=== PATIENT | male | born 1955 | race Caucasian/White ===

== ENCOUNTER 2016-04-03 05:12 | Inpatient (IN) | payer OTHER ==
[2016-03-23 14:36] VITALS: BMI 35.0
--- NOTE | 2016-03-23 15:15 | PAT Medication Instructions ---
Service Date Mar 23, 2016. Current Home Medication List Amlodipine (Norvasc), 10 MG PO QAM Aspirin (Aspirin Ec), 81 MG PO HS Atenolol (Tenormin), 100 MG PO QAM Atorvastatin (Lipitor), 20 MG PO HS Choline Fenofibrate (Trilipix), 1 CAP PO HS Citalopram Hydrobromide (Citalopram Hydrobromide), 1 TAB PO HS Hydrochlorothiazide (Hctz), 25 MG PO QAM Lisinopril (Zestril), 40 MG PO QAM Lorazepam (Ativan), 0.5 MG PO HS PRN for RN Metformin Hcl (Glucophage), 1,000 MG PO BID Multivitamin (Multivitamin), 1 TAB PO QAM Omeprazole (Prilosec), 20 MG PO PRN Spironolactone (Aldactone), 25 MG PO QAM Tramadol (Ultram), 50 MG PO Q6H PRN for RN [Lovaza], 2 GM PO BID Medication Instructions For Your Scheduled Surgery - Hold the following medications 1 week prior to surgery: [Lovaza], 2 GM PO BID - Hold the following medications 48 hours prior to surgery: Metformin Hcl (Glucophage), 1,000 MG PO BID - Hold the following medications 24 hours prior to surgery: Choline Fenofibrate (Trilipix), 1 CAP PO HS - Hold the following medications the morning of surgery: Hydrochlorothiazide (Hctz), 25 MG PO QAM Lisinopril (Zestril), 40 MG PO QAM Spironolactone (Aldactone), 25 MG PO QAM Multivitamin (Multivitamin), 1 TAB PO QAM - Take the following medications the morning of surgery with a sip of water OTHERWISE NOTHING TO EAT OR DRINK AFTER MIDNIGHT: Atenolol (Tenormin), 100 MG PO QAM Amlodipine (Norvasc), 10 MG PO QAM Tramadol (Ultram), 50 MG PO Q6H PRN (may take up to 4 hours prior to surgery if needed) Omeprazole (Prilosec), 20 MG PO PRN (as needed) - Take the following medications as scheduled the night before surgery: Aspirin (Aspirin Ec), 81 MG PO HS Atorvastatin (Lipitor), 20 MG PO HS Citalopram Hydrobromide (Citalopram Hydrobromide), 1 TAB PO HS Tramadol (Ultram), 50 MG PO Q6H PRN Lorazepam (Ativan), 0.5 MG PO HS PRN If you have any questions please call us at [phone] or [phone] or [phone]
[2016-03-23 15:33] LABS: BASO % 0.3 %; BASO ABS # 0.02 K/uL (0-0.2); COMPLETE YES; EOS % 2.5 %; HEMATOCRIT 41.8 % (42-52); IG% 0.3 %; LYMPH % 34.5 %; LYMPH ABS # 2.36 K/uL (1.2-3.4); MEAN CELL VOLUME 79.9 fL (80-100); MEAN CORPUSCULAR HEMOGLOBIN 28.3 pg (25-34); MEAN CORPUSCULAR HGB CONC 35.4 g/dl (32-36); MEAN PLATELET VOLUME 9.3 fL (7.4-10.4); MONO % 7.9 %; NEUT % 54.5 %; PLATELET COUNT 214 K/uL (130-400); RED BLOOD COUNT 5.23 M/uL (4.7-6.1); WHITE BLOOD COUNT 6.84 K/uL (4.8-10.8)
[2016-03-23 15:34] LABS: URINE APPEARANCE CLEAR (CLEAR); URINE BILIRUBIN NEG (NEG); URINE COLOR YELLOW; URINE NITRITE NEG (NEG); URINE PH 7.5 (4.5-7.5); URINE SPECIFIC GRAVITY 1.002 (1.000-1.030); UROBILINOGEN NEG (NEG)
[2016-03-23 15:35] LABS: MANUAL MICROSCOPIC REQUIRED? NO; REVIEW REQ? NO
[~2016-04-03] VITALS: Ht 167.6 cm; Wt 100.0 kg
[2016-04-03] VITALS (18 sets, daily range): BP systolic 145–180; BP diastolic 88–105; PULSE 7–95; TEMP 36.8–37; O2SAT 92–98; Ht 167.6 cm; Wt 100.0 kg
[~2016-04-03 05:12] MED LIST: AMLO-114 PO; ASPI81TA28 PO; ATEN-175 PO; ATOR-22 PO; CHOL135C6 PO; CITA20TA4 PO; GLC/500 PO; HYDR25TA4 PO; LISI40TA PO; LORA-741 PO; LOVAZA PO; MULT-506 PO; PRLSR20 PO; SPIR25TA PO; TRAM-10 PO
[2016-04-03] MEDS ORDERED: LACTATED RINGER'S 1000ML 1,000 ML IV SCH (06:00)
[2016-04-03] MEDS ORDERED: CEFAZOLIN 2000 MG/60 ML D5W IV SCH (06:00)
[2016-04-03] MEDS ORDERED: PROPOFOL IV EMULSION 10 MG/ML 20 ML VIAL IV ONE ×2 (06:14→08:15)
[2016-04-03] MEDS ORDERED: PHENYLEPHRINE HCL INJ 10 MG/ML VIAL ONE (06:14)
[2016-04-03] MEDS ORDERED: ONDANSETRON INJ 2 MG/ML 2 ML VIAL ONE ×2 (06:14→08:15)
[2016-04-03] MEDS ORDERED: LIDOCAINE HCL 2% 2 ML VIAL (20MG/ML) ONE (06:14)
[2016-04-03] MEDS ORDERED: EpHEDrine SULFATE INJ 50 MG/ML AMP ONE (06:14)
[2016-04-03] MEDS ORDERED: GLYCOPYRROLATE INJ 0.2 MG/ML VIAL ONE (06:14)
[2016-04-03] MEDS ORDERED: MIDAZOLAM HCL 1 MG/ML 2ML VIAL ONE (06:14)
[2016-04-03] MEDS ORDERED: NEOSTIGMINE METHYLSULFATE 1 MG/ML 10ML VIAL ONE (06:14)
[2016-04-03] MEDS ORDERED: SUCCINYLCHOLINE CHLORIDE 20 MG/ML 10 ML VIAL IV ONE (06:14)
[2016-04-03] MEDS ORDERED: DEXAMETHASONE SOD INJ 4 MG/ML VIAL ONE ×3 (06:14→08:16)
[2016-04-03] MEDS ORDERED: ROCURONIUM BROMIDE 10 MG/ML 5 ML VIAL ONE ×2 (06:14→08:15)
[2016-04-03] MEDS ORDERED: FENTANYL CITRATE INJ 50 MCG/1 ML 2 ML VIAL ONE ×4 (06:15→09:38)
[2016-04-03] MEDS ORDERED: SODIUM CHL BACTERIOSTATIC 0.9% INJ 30 ML VIAL ONE (06:52)
[2016-04-03] MEDS ORDERED: BACITRACIN 50000 UNIT VIAL ONE (06:53)
--- NOTE | 2016-04-03 07:36 | History & Physical Bridge Note ---
H&P Re-Evaluation Bridge Note: I have examined the patient, reviewed the History & Physical and in the interval since the performance of the History & Physical I have noted the following changes of clinical significance: No changes noted
--- NOTE | 2016-04-03 07:39 | History and Physical ---
History & Physical Date & Time of Service: Apr 03, 2016 at 07:34 Chief Complaint: Cervical Spinal Stenosis Primary Care Physician: Saul Abreu D.O. History of Present Illness Source: patient Patiebt presents for cervical radiculopathy. He has failed conservative measures and presents for surgical treatment Social History Smoking Status: Light Tobacco Smoker Allergies Coded Allergies: No Known Allergies (Unverified , 04/03/16) Home Medications Scheduled Amlodipine (Norvasc), 10 MG PO QAM Aspirin (Aspirin Ec), 81 MG PO HS Atenolol (Tenormin), 100 MG PO QAM Atorvastatin (Lipitor), 20 MG PO HS Choline Fenofibrate (Trilipix), 1 CAP PO HS Citalopram Hydrobromide (Citalopram Hydrobromide), 1 TAB PO HS Hydrochlorothiazide (Hctz), 25 MG PO QAM Lisinopril (Zestril), 40 MG PO QAM Metformin Hcl (Glucophage), 1,000 MG PO BID Multivitamin (Multivitamin), 1 TAB PO QAM Omeprazole (Prilosec), 20 MG PO PRN Spironolactone (Aldactone), 25 MG PO QAM [Lovaza], 2 GM PO BID Scheduled PRN Lorazepam (Ativan), 0.5 MG PO HS PRN for RN 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 (Ultram), 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 Constitutional: No chills, No fatigue, No fever, No problem reported, No sweats , No weakness, No weight loss Eyes: No diplopia, No discharge, No eye pain, No problem reported, No redness, No worsening of vision ENT: No dental problems, No hearing loss, No nasal symptoms, No problem reported, No sore throat, No tinnitus, No trouble swallowing, No unusual epistaxis Respiratory: No cough, No dyspnea at rest, No dyspnea on exertion, No hemoptysis, No problem reported, No shortness of breath, No sputum, No wheezing Cardiovascular: No PND, No chest pain, No claudication, No edema, No orthopnea , No palpitations, No problem reported Abdomen: No GI bleeding, No constipation, No diarrhea, No nausea, No pain, No problem reported, No vomiting Musculoskeletal: No calf pain, No joint pain, No muscle pain, No problem reported, No swelling Genitourinary - Male: No dysuria, No hematuria, No impotence, No lesions, No penile discharge, No problem reported, No urinary frequency, No urinary hesitancy, No urinary incontinence, No urinary retention, No urinary urgency Neurologic: No balance problems, No memory loss, No numbness/tingling, No paralysis, No problem reported, No vertigo, No weakness Psychiatric: No anhedonism, No anxiety, No depression symptoms, No insomnia, No problem reported, No substance abuse Endocrine: No excessive thirst, No excessive urination, No fatigue, No problem reported Hematologic / Lymphatic: No abnormal bleeding/bruising, No clotting problems, No night sweats, No problem reported, No swollen lymph nodes Physical Exam Vital Signs Date Time Temp Pulse Resp B/P Pulse Ox O2 Delivery O2 Flow Rate FiO2 04/03/16 05:39 36.9 58 18 180/98 96 Room Air General Appearance: no apparent distress Head: normocephalic Eyes: normal inspection ENT: normal ENT inspection Neck: supple Respiratory/Chest: chest non-tender Cardiovascular: regular rate, rhythm Abdomen/GI: normal bowel sounds Back: normal inspection Extremities/Musculoskelatal: normal inspection Neurologic/Psych: showcase maker II-XII nml as tested Skin: normal color Diagnostics Laboratory Results Results Past 24 Hours Test 04/03/16 05:30 Range/Units Bedside Glucose 112 70-99 mg/dl Diagnostic Radiology MRI C5-6 disc herniation with nerve root compression. Impression Assessment and Plan C5-6 disc herniation with compression of nerve roots. Will proceed with C5 corpectomy and fusion. Risks and benefits discussed. Advanced Directives Existing Advance Directive: Yes Existing Living Will: Yes Existing Power of Dish Up Person: Yes
[2016-04-03] MEDS ORDERED: ONDANSETRON INJ 2 MG/ML 2 ML VIAL IV PRN ×2 (08:15→09:45)
[2016-04-03] MEDS ORDERED: LABETALOL HCL IV 5 MG/ML 20ML IV PRN (08:15)
[2016-04-03] MEDS ORDERED: ATROPINE SULFATE 0.1 MG/ML 5ML SYR IV PRN (08:15)
[2016-04-03] MEDS ORDERED: FLOSEAL HEMOSTATIC MATRIX 5ML TOP ONE (09:36)
--- NOTE | 2016-04-03 09:43 | [facility] Post Operative Brief Note ---
Immediate Operative Summary Operative Date Apr 03, 2016. Pre-Operative Diagnosis C5-6 disc herniation with compression of nerve roots Post-Operative Diagnosis C5-6 disc herniation with compression of nerve roots Procedure(s) Performed C5 Corpectomy with Anterior Plate and Screw Fixation Surgeon Dr. Raffaele Figueroa Lace Stripper Surgeon(s) YARELY Mendoza Estimated Blood Loss 20ML Findings stenosis Specimens none per surgeon
[2016-04-03] MEDS ORDERED: LORAZEPAM INJ 0.5 MG in SYRINGE 0.75 ML IV PRN (09:45)
[2016-04-03] MEDS ORDERED: DiphenhydrAMINE HCL 50 MG/ML VIAL IV PRN (09:45)
[2016-04-03] MEDS ORDERED: MAGNESIUM HYDROXIDE SUSP 30 ML UDC PO PRN (09:45)
[2016-04-03] MEDS ORDERED: DO NOT ADMINISTER PNEUMOCOCCAL VACCINE PRN ×2 (09:45)
[2016-04-03] MEDS ORDERED: RACEPINEPHRINE 2.25% NEBU SOLN 0.5 ML VIAL INH PRN (09:45)
[2016-04-03] MEDS ORDERED: DEXAMETHASONE INJ 8 MG in SYRINGE 0 ML IV PRN (09:45)
[2016-04-03] MEDS ORDERED: TRAMADOL HCL 50 MG TAB PO PRN (09:45)
[2016-04-03] MEDS ORDERED: ACETAMINOPHEN IV 100 ML IV PRN (09:45)
[2016-04-03] MEDS ORDERED: LORAZEPAM 0.5 MG TAB PO PRN (09:45)
[2016-04-03] MEDS ORDERED: DO NOT ADMINISTER FLU VACCINE PRN ×3 (09:45)
[2016-04-03] MEDS ORDERED: NALOXONE HCL 0.4 MG/1 ML VIAL/CARP IV PRN (09:45)
--- NOTE | 2016-04-03 10:06 | OPERATIVE REPORT ---
DATE OF OPERATION: 04/03/2016 PREOPERATIVE DIAGNOSES: Cervical spondylosis, myeloradiculopathy. POSTOPERATIVE DIAGNOSES: Same. PROCEDURE PERFORMED: 1. Anterior cervical corpectomy C5. 2. Anterior cervical arthrodesis C4-C6. 3. Placement of PEEK cage 23 mm in height at C4-C6. 4. Application of Lomax plate and screws C4-C6. 5. Placement of locally harvested morselized autograft combined with DBM in the interbody cage. SURGEON: Dr. Raffaele Figueroa. NURSE PRACTITIONER PHYSICIANS ASSISTANT: Due to the complex nature of the procedure, the entire surgery was performed with the virtual assistant for advertisers of SHRUTHI Cortes. The central supply assistant, under direct supervision, was involved in the actual performance of all aspects of the surgical procedure including hemostasis, tissue retraction and incision, instrument management, patient positioning, and wound closure. ANESTHESIA: General. DISPOSITION: The patient awakened and taken to PACU in stable condition. HISTORY OF PATIENT'S PROBLEMS: This is a 60-year-old male who presents with above-mentioned diagnosis. After failing an extensive course of nonoperative care, elected to undergo the above-mentioned procedure. Risks, benefits, pros, cons, and alternatives were outlined in detail preoperatively. DESCRIPTION OF PROCEDURE: The patient was met with preoperatively, case discussed and all questions were addressed. At that point the patient was taken back to the operative suite and after undergoing successful general intubation by the department of anesthesia was placed in position on Calin table, head in [place] barrelhead inspector. All bony prominences were well padded and the eyes were inspected to ensure there was no external pressure placed upon them. At this point, the anterior cervical spine was prepped and draped in normal sterile fashion. With the assistance of fluoroscopy, we identified the C5 vertebral body and a transverse incision was placed along the right anterior aspect of the cervical spine overlying this region. Sharp dissection with the assistance of bipolar electrocautery was performed down to and exposing the anterior cervical spine from C4-C6. A self-retaining retractor was placed. I then performed a complete diskectomy of C4-C5 out to the uncovertebral joints bilaterally followed by C5-C6. [place]-distracting pins were then placed in C4 and C6 to distract across the C5 vertebral body. A complete corpectomy was then performed including removal of all posterior fibers, longitudinal ligament and bilateral foraminotomies. Endplates were then burred to subcortical bleeding bone and a 23 mm PEEK cage filled with locally harvested morcellized autograft and Teresa bone grafting tapped into position. Distracting apparatus was removed. All anterior osteophytes burred to a smooth cortical surface and a Lomax plate and screws applied with the assistance of fluoroscopy. The incision was then copiously irrigated, explored to ensure there was no damage to surrounding structures or remaining bleeding. A 10 round JUANA drain inserted and was then closed with 2-0 Vicryl in the fascia, 4-0 Monocryl for final skin closure. Steri-Strips and sterile dressing was placed. The patient was awakened and taken to PACU in stable condition. I attest to the content of the Intraoperative Record and any orders documented therein. Any exceptio ns are noted below.
--- NOTE | 2016-04-03 10:09 | DIAGNOSTIC IMAGING REPORT ---
INTRAOPERATIVE RADIOGRAPHS CLINICAL HISTORY: Anterior fusion from C4 to C6. Fluoroscopy time: 11 seconds. FINDINGS: 2 spot fluoroscopic views of the cervical spine are presented. An endotracheal tube is in place. There is evidence of corpectomy of C5 with anterior fusion from C4 to C6. The orthopedic hardware appears intact. IMPRESSION: Intraoperative images from C4 to C6 anterior spinal fusion as above. Electronically signed by: Jesus Garcia M.D. 04/03/2016 10:08 AM Dictated Date/Time: 04/03/2016 10:07 AM
[2016-04-03] MEDS: HYDROmorphone INJ 1 MG/ML SYR ONE ×2 (10:56→11:07)
[2016-04-03] MEDS: HYDROmorphone INJ 2 MG/ML SYR/VIAL IV PRN ×4 (11:00→11:15)
[2016-04-03] MEDS ORDERED: PHARMACY GLYCEMIC MGMT CONSULT PRN (11:13)
--- NOTE | 2016-04-03 11:18 | Anesthesiology Progress Note ---
Anesthesia Post Op Note Date & Time Apr 03, 2016 at 11:18 Vital Signs Vital Signs Past 12 Hours Date Time Temp Pulse Resp B/P Pulse Ox O2 Delivery O2 Flow Rate FiO2 04/03/16 11:10 70 16 145/89 97 Nasal Cannula 4 04/03/16 11:00 70 16 156/92 97 Nasal Cannula 4 04/03/16 10:50 70 16 157/91 96 Nasal Cannula 4 04/03/16 10:40 65 16 154/87 97 Nasal Cannula 4 04/03/16 10:30 61 16 147/80 97 Nasal Cannula 4 04/03/16 10:20 65 16 147/81 99 Mask 10 04/03/16 10:10 36.6 68 16 139/72 95 Mask 10 04/03/16 05:39 36.9 58 18 180/98 96 Room Air Notes Mental Status: alert / awake / arousable, participated in evaluation Pt Amnestic to Procedure: Yes Nausea / Vomiting: adequately controlled Pain: adequately controlled Airway Patency, RR, SpO2: stable & adequate BP & HR: stable & adequate Hydration State: stable & adequate Anesthetic Complications: no major complications apparent
[2016-04-03] MEDS ORDERED: GLUCAGON FOR INJ 1 MG VIAL SQ PRN (12:00)
[2016-04-03] MEDS ORDERED: DEXTROSE 50% 50 ML SYR IV PRN (12:00)
[2016-04-03] MEDS ORDERED: GLUCOSE 40% GEL 15 GM TUBE PO PRN (12:00)
[2016-04-03] MEDS ORDERED: GLUCOSE 10 TABS/TUBE PO PRN (12:00)
[2016-04-03] MEDS ORDERED: OXYCODONE HCL IR 5 MG TAB (IMMEDIATE RELEASE) ONE (12:05)
--- NOTE | 2016-04-03 12:11 | Pharmacy Progress Note ---
Glycemic Control Intl Consult Date of Service Apr 03, 2016. Scope Glycemic Pharmacist consulted by Dr Figueroa on 04/03/16 for glycemic control and to write orders per [facility] inpatient glycemic control protocol Objective Weight (Kilograms): 100.00 Accuchecks BSG (last 24hrs): Test 04/03/16 05:30 04/03/16 10:21 Bedside Glucose 112 mg/dl (70-99) 125 mg/dl (70-99) Recent Pertinent Medications Outpatient Anti-diabetic Regimen: * Metformin 1gm PO BID * A1c = ? Risk Factors for Insulin Resistance: * Steroids: May have received up to 12mg IV dexamethasone in the OR today; post -op he is to receive dexamethasone 6mg IV Q 8 hrs x 3 doses * Recent Surgery: POD # 0, s/p C5 corpectomy with anterior plate * Diet: ordered Clear Liquid diet post-op Assessment & Plan ASSESSMENT: 04/03/16: * Patient admitted w/ cervical spinal stenosis to undergo surgical intervention * No prior h/o DM listed on H&P, however this patient was using Metformin prior to admission per med rec. We do not have a recent A1c for review. * Will order A1c w/ AM labs tomorrow * He will likely experience some degree of insulin resistance post-op given high dose steroid administration along with some underlying h/o insulin resistance. * I am hesitant to add basal insulin at this time, given h/o metformin monotherapy and admission BSG of 112 today. However, if his HS BSG is above 150 will give a single low dose of Lantus (0.1units/kg) * Novolog CF and CR will be utilized ACHS and at 0200 to offer additional coverage if steroids lead to worsening glycemic control. Novolog doses will be based on weight. PLAN FOR INPATIENT GLYCEMIC CONTROL: * Lantus 10 units x 1 this evening if BSG > 150 * BSGs ACHS and at 0200 tonight; cover all BSG's with Novolog SQ * Correction factor 20 mg/dl/unit * Carb ratio of 1 unit per 8 grams CHO consumed * Goal range Low 110 mg/dL - High 140 mg/dL * Please note that the plan above was derived based on current level of insulin resistance and hospital stress. These recommendations are appropriate for inpatient admission only. Plan of care upon discharge will need to be reassessed to avoid potential outpatient hypo/hyperglycemia. Thank you.
[2016-04-03] MEDS ORDERED: HYDROmorphone INJ 1 MG/ML SYR IV PRN (12:45)
[2016-04-03] MEDS ORDERED: SCOPOLAMINE 1.5 MG TDSY TD SCH (13:00)
[2016-04-03] MEDS ORDERED: RXC5 PO (13:19)
--- NOTE | 2016-04-03 13:19 | Discharge Instructions ---
Discharge Instructions Admission Reason for Admission: Cervical Spinal Stenosis Discharge Discharge Diagnosis / Problem: stenosis Discharge Goals Goal(s): Improve function Activity Recommendations Activity Limitations: per Instructions/Follow-up section . Instructions / Follow-Up Instructions / Follow-Up ACTIVITY RECOMMENDATIONS: SELF CARE INSTRUCTIONS AFTER CERVICAL FUSIONS 1. No smoking. Smoking drastically decreases the chance of a solid fusion. 2. No bending, lifting more than 5 pounds, or twisting (roll like a log when turning in bed). 3. You may shower 3 days after surgery. Thoroughly dry wound. Do not soak in the tub. 4. Cervical collar: Must be worn at all times including sleeping. You may remove the brace only to bath, eat and if you are sitting in a recliner. 5. Please walk as much as you can for exercise. Gradually increase the distance that you walk as your endurance increases. SPECIAL CARE INSTRUCTIONS: VERY IMPORTANT TO READ AND REVIEW A. Do not take any anti-inflammatory medications (i.e. Indocin, Advil, Aspirin, Naprosyn, Aleve, Motrin, etc.) as these may inhibit the chance of a solid fusion. Tylenol is okay to take. B. Your surgical incision has been closed with a cosmetic suture under the skin that will dissolve in about 6 weeks. In 14 days, you can use a pair of clean scissors and cut the suture that is left outside of the skin at the ends of your incision. C. Complications are uncommon, but please contact us if you have any signs or symptoms of: 1. wound infection (fever higher than 102.5 degrees F, redness, separation of wound, drainage, or increasing pain from the incision) 2. blood clots in legs (pain, swelling, redness and warmth in legs) 3. urinary tract infection (fever higher than 102.5 degrees, burning upon urination or increased frequency of urination) 4. nerve problems (inability to walk on your toes or heels, numbness, loss of bowel or bladder control) 5. any other symptoms that concern you. D. Please call the office at if you have any concerns or questions about your operation or recovery. MANAGING PAIN AFTER SPINAL SURGERY 1. Narcotic medication is intended for short-term use and will be provided for surgical pain. Surgical pain usually lasts for a period of 4-6 weeks. Narcotic medication includes Percocet, Vicodin, Darvocet, Tylenol #3 or Lortab. 2. Longer-term pain is more appropriately treated with non-narcotic medication such as Tylenol ES. 3. Muscle spasm is not appropriately treated with narcotics. Muscle relaxers such as Soma, Flexeril or Skelaxin can be used along with Tylenol ES. 4. Remember that we all live with some "aches and pains". This is not unusual or uncommon after an injury or as we get older. 5. We will provide appropriate medication within the normal guidelines of their prescribed use. We will also be very cautious and aware of potential abuse and extended duration of patients' medication needs. 6. Please allow 2-3 days to process refills. Prescriptions will not be mailed but must be picked up at the office. FOLLOW UP VISIT: Keep your scheduled follow-up appointment. Any questions, please call the office at . Current Hospital Diet Patient's current hospital diet: Clear Liquid Diet Discharge Diet Recommended Diet: Regular Diet Procedures Procedures Performed: C5 Corpectomy with Anterior Plate and Screw Fixation Pending Studies Studies pending at discharge: no Medical Emergencies . Who to Call and When: Medical Emergencies: If at any time you feel your situation is an emergency, please call 911 immediately. . Non-Emergent Contact Non-Emergency issues call your: Primary Care Provider . "Provider Documentation" section prepared by Raffaele Figueroa. VTE Core Measure Inpt VTE Proph given/why not?: Galdino Hoffman, SCD's
[2016-04-03] MEDS: LACTATED RINGER'S 1000ML 1,000 ML IV SCH ×2 (13:46→21:11)
[2016-04-03] MEDS: CEFAZOLIN IV 2,000 MG in DEXTROSE 5% 50ML 50 ML IV SCH ×2 (15:47→23:57)
[2016-04-03] MEDS: DEXAMETHASONE INJ 6 MG in SYRINGE 0 ML IV SCH ×2 (15:47→23:57)
[2016-04-03] MEDS: CHECK SCOPOLAMINE PATCH PLACEMENT SCH (15:48)
[2016-04-03] MEDS: OXYCODONE HCL IR 5 MG TAB (IMMEDIATE RELEASE) PO PRN (16:03)
[2016-04-03] MEDS ORDERED: NURSING VERBAL MED ORDER ONE ×3 (18:15→21:00)
[2016-04-03] MEDS: SPIRONOLACTONE 25 MG TAB PO SCH (18:41)
[2016-04-03] MEDS: HYDROCHLOROTHIAZIDE 25 MG TAB PO SCH (18:42)
[2016-04-03] MEDS: AMLODIPINE BESYLATE 5 MG TAB PO SCH (18:43)
[2016-04-03] MEDS: INSULIN ASPART 100 UNITS/ML 3 ML PEN SC SCH ×2 (18:58→21:10)
[2016-04-03] MEDS ORDERED: PANTOprazole SOD 40 MG TAB PO PRN (19:30)
[2016-04-03] MEDS ORDERED: CITALOPRAM 20 MG TAB PO SCH (21:00)
[2016-04-03] MEDS ORDERED: ATORVASTATIN 20 MG TAB PO SCH (21:00)
[2016-04-03] MEDS ORDERED: ASPIRIN 81 MG ECTAB PO SCH (21:00)
[2016-04-03] MEDS: DOCUSATE SODIUM 100 MG CAP PO SCH (21:08)
[2016-04-03] MEDS ORDERED: LANTUS PER UNIT CHARGE SQ SCH (21:15)
[2016-04-04] VITALS (8 sets, daily range): BP systolic 147–160; BP diastolic 86–95; PULSE 63–81; TEMP 36.4–37; O2SAT 93–96
[2016-04-04] MEDS: CHECK SCOPOLAMINE PATCH PLACEMENT SCH ×2 (00:27→07:13)
[2016-04-04] MEDS: OXYCODONE HCL IR 5 MG TAB (IMMEDIATE RELEASE) PO PRN (00:54)
[2016-04-04] MEDS ORDERED: INSULIN ASPART 100 UNITS/ML 3 ML PEN SC ONE (02:00)
[2016-04-04] MEDS ORDERED: HYDROmorphone INJ 1 MG/ML SYR IV PRN (06:00)
[2016-04-04 07:32] LABS: ESTIMATED AVERAGE GLUCOSE 126 mg/dl; HA1C FLAG Normal (Normal)
[2016-04-04] MEDS: DEXAMETHASONE INJ 6 MG in SYRINGE 0 ML IV SCH (08:45)
[2016-04-04] MEDS: CEFAZOLIN IV 2,000 MG in DEXTROSE 5% 50ML 50 ML IV SCH (08:45)
[2016-04-04] MEDS: AMLODIPINE BESYLATE 5 MG TAB PO SCH (08:46)
[2016-04-04] MEDS: DOCUSATE SODIUM 100 MG CAP PO SCH (08:46)
[2016-04-04] MEDS: HYDROCHLOROTHIAZIDE 25 MG TAB PO SCH (08:47)
[2016-04-04] MEDS: SPIRONOLACTONE 25 MG TAB PO SCH (08:48)
[2016-04-04] MEDS ORDERED: LISINOPRIL 40 MG TAB PO SCH (09:00)
[2016-04-04] MEDS: INSULIN ASPART 100 UNITS/ML 3 ML PEN SC SCH (09:01)
[2016-04-04] MEDS: LACTATED RINGER'S 1000ML 1,000 ML IV SCH (10:43)
--- NOTE | 2016-04-04 10:54 | DISCHARGE SUMMARY ---
DATE OF DISCHARGE: 04/04/2016. PRINCIPAL DIAGNOSIS: Cervical spinal stenosis with myeloradiculopathy. HOSPITAL COURSE FOLLOWS: On 04/03/2016 the patient underwent anterior cervical corpectomy and tolerated this well and taken to the orthopedic floor postoperatively. Postop day #1, he was up and ambulatory. Arm symptoms improved, swallowing well, no hoarseness. Subsequently discharged home. Discharge orders and instructions can be found on the chart for further review.
[2016-04-05] MEDS ORDERED: BISACODYL 10 MG SUPP PR PRN (06:00)
[2016-04-05] MEDS ORDERED: BISACODYL 5 MG TABEC PO PRN (06:00)
[2016-04-05] MEDS ORDERED: POLYETHYLENE (MIRALAX) 17 GM PACK PO SCH (09:00)
== END 2016-04-04 11:08 | disposition home or self-care (01) | DRG 473 ==
LOC: ENRESERVTM → ENRESERVDT → C.ACU 05:12 → C.3E 09:45
PROVIDERS: ADMIT Orthopaedic Surgery Orthopaedic Surgery of the Spine; ATTEND Orthopaedic Surgery Orthopaedic Surgery of the Spine
PROC: 0RG207J Fusion of 2 or more Cervical Vertebral Joints with Autologous Tissue Substitute, Posterior Approach, Anterior Column, Open Approach (ICD-10-PCS; principal; 2016-04-03 07:30)
PROC: 0RG20AJ Fusion of 2 or more Cervical Vertebral Joints with Interbody Fusion Device, Posterior Approach, Anterior Column, Open Approach (ICD-10-PCS; principal; 2016-04-03 07:30)
PROC: 0RT30ZZ Resection of Cervical Vertebral Disc, Open Approach (ICD-10-PCS; principal; 2016-04-03 07:30)
DX: M47.12 Other spondylosis with myelopathy, cervical region (principal); M48.02 Spinal stenosis, cervical region; F17.210 Nicotine dependence, cigarettes, uncomplicated; M50.122 Cervical disc disorder at C5-C6 level with radiculopathy